=== PATIENT | female | born 1960 | race Caucasian/White ===

== ENCOUNTER 2022-06-23 10:22 | Emergency (ER) | payer MEDICAID, OTHER ==
[~2022-06-23] VITALS: Ht 157.5 cm; Wt 85.7 kg
[2022-06-23 10:58] VITALS: BP 97/63
--- NOTE | 2022-06-23 10:58 | NUR ---
[facility] SENT BY PMD DR ESPINO FOR ABNORMAL LAB, "MY WBC AND POTASSIUM ARE HIGH", AAOX3, BREATHING EVEN AND NON LABORED, CONNECTED TO MONITOR
--- NOTE | 2022-06-23 11:20 | NUR ---
SALINE LOCK ESTABLISHED, BLOOD DRAWN, AND SENT TO LAB
--- NOTE | 2022-06-23 11:26 | NUR ---
COVID SWAB DONE AND SENT TO LAB
[2022-06-23] MEDS ORDERED: NILO150C PO (11:28)
[2022-06-23] MEDS ORDERED: NAPR-1009 PO (11:28)
[2022-06-23 11:41] LABS: BASOPHILS # (AUTO) 1.3 K/uL (0.0-0.2); BASOPHILS % (AUTO) 0.9 % (0.0-2.0); EOSINOPHILS % (AUTO) 1.4 % (0.0-6.0); HEMATOCRIT 32 % (33-45); HEMOGLOBIN 9.5 g/dL (11.5-14.8); LYMPHOCYTES # (AUTO) 6.3 K/uL (0.8-4.8); LYMPHOCYTES % (AUTO) 4.6 % (20.0-44.0); MEAN CORPUSCULAR HGB CONC 30 g/dl (31.0-36.0); MEAN CORPUSCULAR VOLUME 86 fL (82-100); MONOCYTES # (AUTO) 9.9 K/uL (0.1-1.30); MONOCYTES % (AUTO) 7.2 % (2.0-12.0); NEUTROPHILS # (AUTO) 116.8 K/uL (1.8-8.9); NEUTROPHILS % (AUTO) 85.9 % (43.0-81.0); PLATELET COUNT (AUTO) 409 K/uL (150-450); RED BLOOD CELL COUNT(AUTO) 3.71 MIL/uL (4.0-5.2)
[2022-06-23 11:54] LABS: CALCIUM, SERUM 9.4 mg/dL (8.5-10.1); POTASSIUM 3.5 mmol/L (3.5-5.1)
[2022-06-23 12:03] LABS: ALBUMIN 3.7 g/dL (3.4-5.0); BILIRUBIN,TOTAL 0.2 mg/dL (0.2-1.0); TOTAL PROTEIN, SERUM 8.1 g/dL (6.4-8.2)
[2022-06-23 12:11] LABS: WHITE BLOOD COUNT (AUTO) 136.1 K/uL (4.3-11.0)
[2022-06-23 12:18] LABS: BASOPHILS % (MANUAL) 0 % (0.0-2.0); EOSINOPHILS % (MANUAL) 2 % (0-4); LYMPHOCYTES % (MANUAL) 4 % (16-48); MONOCYTES % (MANUAL) 12 % (0-11.0); NEUTROPHILS % (MANUAL) 82 (42-76)
--- NOTE | 2022-06-23 14:11 | NUR ---
[facility] [phone] AT [facility]. UNABLE TO TAKE THE PATIENT.
--- NOTE | 2022-06-23 14:19 | NUR ---
[facility] IS [facility].
--- NOTE | 2022-06-23 15:10 | NUR ---
CALL FROM [facility], SHE RECOMMENDED THAT SHE FOLLOWS UP WITH HER ONCOLOGIST OR GO TO [facility], .
--- NOTE | 2022-06-23 15:56 | NUR ---
HER PMD CALLED HER AND TOLD HER THAT HE CAN GET HER INTO [facility] WITH AN ONCOLOGIST. COPY OF LABS GIVEN
--- NOTE | 2022-06-23 15:58 | NUR ---
IV removed. Catheter intact and site benign. Pressure and 4x4 applied to site. No bleeding noted.Patient discharged to home in stable condition. Written and verbal after care instructions given. Patient verbalizes understanding of instruction.
== END 2022-06-23 15:59 | disposition home or self-care (01) ==
LOC: ER 10:28
DX: C95.90 Leukemia, unspecified not having achieved remission (principal); Z88.4 Allergy status to anesthetic agent; Z87.442 Personal history of urinary calculi; R94.31 Abnormal electrocardiogram [ECG] [EKG]
CPT/HCPCS: 99284; 87426; 93005; 85025; 36415; 80053; 87081; 85007; C9803

== ENCOUNTER 2022-08-20 22:20 | Emergency (ER) | payer MEDICAID ==
[~2022-08-20] VITALS: Ht 157.5 cm; Wt 80.3 kg
[~2022-08-20 22:20] MED LIST: NAPR-1009 PO; NILO150C PO
[2022-08-20] MEDS ORDERED: HYDROCODONE/APAP 5/325MG TABLET PO ONE (22:30)
[2022-08-20 22:31] VITALS: BP 131/72
[2022-08-20] MEDS ORDERED: HYDROCODONE/APAP 5/325MG TABLET ONE (22:33)
--- NOTE | 2022-08-20 22:40 | NUR ---
[facility] AT BEDSIDE
[2022-08-20] MEDS ORDERED: OXYC-128 PO (23:03)
== END 2022-08-20 23:37 | disposition home or self-care (01) ==
LOC: ER 22:26
DX: S92.352D Displaced fracture of fifth metatarsal bone, left foot, subsequent encounter for fracture with routine healing (principal); E11.9 Type 2 diabetes mellitus without complications; Z88.8 Allergy status to other drugs, medicaments and biological substances; X58.XXXD Exposure to other specified factors, subsequent encounter
CPT/HCPCS: 73630-TC

== ENCOUNTER 2025-05-21 21:43 | Emergency (ER) | payer OTHER ==
[~2025-05-21] VITALS: Ht 162.6 cm; Wt 77.1 kg
[~2025-05-21 21:43] MED LIST changes: +OXYC-128 PO
[2025-05-21 21:58] VITALS: BP 148/84; TEMP 98.1; O2SAT 100
== END 2025-05-22 00:56 | disposition left against medical advice (07) ==
LOC: ER 21:53
DX: R53.1 Weakness (principal); Z53.21 Procedure and treatment not carried out due to patient leaving prior to being seen by health care provider